=== PATIENT | female | born 1990 | race Caucasian/White ===

== ENCOUNTER 2019-09-28 07:08 | Outpatient (CLI) | payer OTHER ==
[2019-09-28 12:30] LABS: BASOPHILS % (AUTO) 0.5 %; EOSINOPHILS # (AUTO) 0.1 10^3/uL (0.0-0.7); EOSINOPHILS % (AUTO) 1.5 %; HGB - HEMOGLOBIN 14.5 g/dL (12.0-16.0); LYMPHOCYTES # (AUTO) 0.9 10^3/uL (1.5-3.5); LYMPHOCYTES % (AUTO) 21.4 %; MEAN CORPUSCULAR HEMOGLOBIN 29.7 pg (27.0-31.0); MEAN CORPUSCULAR HGB CONC 31.7 g/dL (32.0-36.0); MEAN CORPUSCULAR VOLUME 93.9 fL (81.0-99.0); MEAN PLATELET VOLUME 10.5 fL (7.9-10.8); MONOCYTES # (AUTO) 0.3 10^3/uL (0.0-1.0); MONOCYTES % (AUTO) 7.9 %; NEUTROPHILS # (AUTO) 2.8 10^3/uL (1.5-6.6); NEUTROPHILS % (AUTO) 68.5 %; PLT - PLATELET COUNT 253 10^3/uL (130-450); RED BLOOD COUNT 4.88 10^6/uL (4.20-5.40); RED CELL DISTRIBUTION WIDTH 12.2 % (12.0-15.0); WHITE BLOOD COUNT 4.1 x10^3/uL (4.8-10.8)
[2019-09-28 13:23] LABS: ALBUMIN 4.4 g/dL (3.2-5.5); ALBUMIN/GLOBULIN RATIO 1.5 (1.0-2.2); ALKALINE PHOSPHATASE 44 IU/L (42-121); ALT ALANINE AMINOTRANSFERASE 18 IU/L (10-60); AST ASPARTATE AMINOTRANSFERASE 18 IU/L (10-42); BILIRUBIN,TOTAL 0.7 mg/dL (0.2-1.0); BUN - BLOOD UREA NITROGEN 9 mg/dL (6-20); CALCIUM 9.1 mg/dL (8.5-10.3); CARBON DIOXIDE - CO2 26 mmol/L (21-32); CHLORIDE 105 mmol/L (101-111); CHOL/HDL RATIO 2.2 (<4.4); CHOLESTEROL 147 mg/dL; CREATININE 0.8 mg/dL (0.4-1.0); GFR - MDRD 86 (>89); GLUCOSE 93 mg/dL (70-100); HDL CHOLESTEROL 66 mg/dL; SODIUM 138 mmol/L (135-145); TOTAL PROTEIN 7.4 g/dL (6.7-8.2)
[2019-09-28 13:27] LABS: HB2 TOTAL 14.7 g/dL; HEMOGLOBIN A1C 0.55 g/dL; HEMOGLOBIN A1C % 5.6 % (4.6-6.2)
== END 2019-09-28 23:59 | disposition home or self-care (01) ==
LOC: LAB.N 07:08
PROVIDERS: ATTEND Family Medicine
DX: Z00.00 Encounter for general adult medical examination without abnormal findings (principal)
CPT/HCPCS: 36415; 80053; 80061; 83036; 83721; 84443; 85025

== ENCOUNTER 2019-10-31 15:28 | Outpatient (CLI) | payer OTHER ==
--- NOTE | 2019-11-02 11:04 | Ultrasound Report ---
Reason: POSITIVE TEST Procedure Date: 10/31/2019 Accession Number: [id number] / [id number] Procedure: US - OB First Trimester CPT Code: Final Report FULL RESULT: EXAM: FIRST TRIMESTER OBSTETRIC ULTRASOUND (Less than 11 weeks) EXAM DATE: 10/31/2019 04:30 PM. CLINICAL HISTORY: POSITIVE TEST. LMP: 09/01/2019. COMPARISONS: None. TECHNIQUE: Transabdominal and transvaginal ultrasound examination with static image documentation. CLINICAL DATES: EGA 8 weeks 4 days with LUCINDA 06/07/2020 based on LMP. ASSESSMENT: Gestational Sac: Single intrauterine. Mean gestational sac diameter: 39 mm = 9 weeks 2 days. Embryo: CRL (crown-rump length) 21 mm = 8 weeks 5 days. Cardiac activity: 175 beats per minute. Yolk sac: 5 mm. Amniotic fluid: Not accurately assessed at this gestational age. Early placenta: Not visible at this gestational age. Other: There is a small perigestational fluid collection measuring 17 x 7 mm. MATERNAL STRUCTURES: Uterus: Anteverted. Unremarkable. Cervix: Closed. Right Ovary/Adnexa: The ovary measures 1.9 x 1.3 x 2.3 cm, volume 2.8 cc. Unremarkable. Left Ovary/Adnexa: The ovary measures 2.5 x 1.5 x 3.3 cm, volume 6.6 cc. There is a corpus luteum measuring 1.6 x 0.9 x 1.2 cm. Free Fluid: None. Other: None. IMPRESSION: 1. Single viable intrauterine at EGA 8 weeks 5 days with LUCINDA 06/06/2020 based on crown-rump length, which is concordant with clinical dates. 2. Assigned dating is LUCINDA 06/07/2020 based on LMP. 3. There is a small perigestational fluid collection measuring 17 x 7 mm. RADIA
== END 2019-10-31 15:29 | disposition home or self-care (01) ==
LOC: DI 15:28
PROVIDERS: ATTEND Nurse Practitioner Obstetrics & Gynecology
DX: Z32.01 Encounter for pregnancy test, result positive (principal)
CPT/HCPCS: 76801; 76817

== ENCOUNTER 2019-11-09 08:00 | Outpatient (CLI) | payer OTHER ==
[2019-11-10 14:33] LABS: MUDS CUTOFF CONCENTRATIONS CUTOFF CONC BELOW:
[2019-11-10 14:38] LABS: BILIRUBIN,URINE NEGATIVE (NEGATIVE); GLUCOSE, URINE (UA) NEGATIVE (NEGATIVE); KETONES,URINE (UA) NEGATIVE (NEGATIVE); LEUKOCYTE ESTERASE, URINE NEGATIVE (NEGATIVE); NITRITE,URINE NEGATIVE (NEGATIVE); OCCULT BLOOD,URINE NEGATIVE (NEGATIVE); PROTEIN,URINE NEGATIVE (NEGATIVE); UROBILINOGEN,URINE 0.2 (NORMAL) E.U./dL (NORMAL)
[2019-11-10 14:40] LABS: CLARITY,URINE CLEAR (CLEAR)
[2019-11-10 14:48] LABS: BACTERIA,URINE Rare /HPF (None Seen); RBC,URINE 0-5 /HPF (0-5); SQUAMOUS EPITHELIAL CELL,UR RARE Squamous (<= Few)
[2019-11-10 14:49] LABS: AMPHETAMINE SCREEN,URINE NEGATIVE (NEGATIVE); COCAINE SCREEN URINE NEGATIVE (NEGATIVE); METHAMPHETAMINES SCREEN, URINE NEGATIVE (NEGATIVE); OPIATE SCREEN, URINE NEGATIVE (NEGATIVE)
[2019-11-10 14:50] LABS: BENZODIAZEPINES SCREEN, URINE NEGATIVE (NEGATIVE); METHADONE SCREEN, URINE NEGATIVE (NEGATIVE); OXYCODONE SCREEN, URINE NEGATIVE (NEGATIVE); PROPOXYPHENE SCREEN, URINE NEGATIVE (NEGATIVE); TRICYCLIC ANTIDEPRESSANT,URINE NEGATIVE (NEGATIVE)
== END 2019-11-09 23:59 | disposition home or self-care (01) ==
LOC: LAB.R 08:00
PROVIDERS: ATTEND Obstetrics & Gynecology
DX: Z36.89 Encounter for other specified antenatal screening (principal)
CPT/HCPCS: 80306; 81001; 87086

== ENCOUNTER 2019-12-28 08:00 | Outpatient (CLI) | payer OTHER ==
[2019-12-28 17:50] LABS: BASOPHILS % (AUTO) 0.4 %; EOSINOPHILS % (AUTO) 0.4 %; HGB - HEMOGLOBIN 13.3 g/dL (12.0-16.0); LYMPHOCYTES % (AUTO) 12.4 %; MEAN CORPUSCULAR HEMOGLOBIN 30.9 pg (27.0-31.0); MEAN CORPUSCULAR HGB CONC 32.2 g/dL (32.0-36.0); MEAN PLATELET VOLUME 10.6 fL (7.9-10.8); MONOCYTES # (AUTO) 0.4 10^3/uL (0.0-1.0); MONOCYTES % (AUTO) 4.8 %; NEUTROPHILS # (AUTO) 6.2 10^3/uL (1.5-6.6); NEUTROPHILS % (AUTO) 81.2 %; PLT - PLATELET COUNT 212 10^3/uL (130-450); WHITE BLOOD COUNT 7.7 x10^3/uL (4.8-10.8)
[2019-12-29 08:40] LABS: HEPATITIS B SURFACE ANTIGEN NON-REACTIVE (NON-REACTIVE)
[2019-12-29 10:24] LABS: HEPATITIS C ANTIBODY NON-REACTIVE (NON-REACTIVE)
[2019-12-29 10:40] LABS: HIV AG/AB 4TH GEN NON-REACTIVE (NON-REACTIVE)
== END 2019-12-28 23:59 | disposition home or self-care (01) ==
LOC: LAB.WCP 08:00
PROVIDERS: ATTEND Obstetrics & Gynecology
DX: Z34.80 Encounter for supervision of other normal pregnancy, unspecified trimester (principal); Z36.89 Encounter for other specified antenatal screening
CPT/HCPCS: 36415; 81599; 82950; 85025; 86592; 86762; 86803; 86850; 86900; 86901; 87340; 87389; 87522

== ENCOUNTER 2020-02-03 08:44 | Outpatient (CLI) | payer OTHER ==
--- NOTE | 2020-02-03 15:59 | Ultrasound Report ---
Reason: SCREENING Procedure Date: 02/03/2020 Accession Number: [id number] / [id number] Procedure: US - OB Detailed Eval CPT Code: Final Report FULL RESULT: EXAM: COMPLETE OBSTETRICAL ULTRASOUND EXAM DATE: 02/03/2020 10:20 AM. CLINICAL HISTORY: anatomic survey. COMPARISON: OB FIRST TRIMESTER 10/31/2019 4:00 PM. TECHNIQUE: Real-time sonographic evaluation of the fetus performed by the stereo plotter operator. Multiple advertising account representative static images were saved for review. DATING: Established EGA 22 weeks 2 days with LUCINDA 06/06/2020 based on stated dates and first ultrasound of 10/31/2019. EGA 22 weeks 1 day with LUCINDA 06/07/2020 based on LMP. EGA 22 weeks 4 days with LUCINDA 06/04/2020 based on the current ultrasound. GENERAL EVALUATION Castañeda . Cardiac activity: 158 bpm. movement: Visualized. Presentation: Cephalic. Placenta: Posterior position. No evidence for previa. Umbilical cord: 3 vessel cord. Central placental cord origin. Amniotic fluid: DAV 20.0 cm. MVP 5.5 cm. BIOMETRY Bi-Parietal Diameter (BPD): 5.5 cm, 22 weeks 5 days Head Circumference (HC): 20.4 cm, 22 weeks 4 days Abdominal Circumference (AC): 17.8 cm, 22 weeks 5 days Femur Length (FL): 4.0 cm, 22 weeks 6 days Estimated Weight: 529 g, 67 percentile for 22 weeks 2 days. ANATOMY The intracranial structures, profile, face/nose/lips, spine, 4 chamber heart and outflow tracts, stomach, abdominal wall and cord insertion, diaphragm, kidneys, bladder, and extremities were visualized and demonstrate no abnormality. MATERNAL STRUCTURES Uterus: Unremarkable. Cervix: Long and closed. Transabdominal length 3.5 cm. Right ovary/adnexa: Unremarkable. Left ovary/adnexa: Unremarkable. Free fluid: None. IMPRESSION: 1. Castañeda live intrauterine with gestational age 22 weeks 2 days based on established dates. 2. Estimated weight is within expected limits for assigned dating. 3. Normal anatomic survey. No anatomic abnormalities are detected at this time. RADIA
== END 2020-02-03 08:45 | disposition home or self-care (01) ==
LOC: DI 08:44
PROVIDERS: ATTEND Obstetrics & Gynecology
DX: Z36.89 Encounter for other specified antenatal screening (principal)
CPT/HCPCS: 76811

== ENCOUNTER 2020-02-15 08:14 | Outpatient (CLI) | payer OTHER | END 2020-02-15 08:15 | disposition home or self-care (01) | LOC: RT 08:14 | PROVIDERS: ATTEND Obstetrics & Gynecology | DX: O99.419 Diseases of the circulatory system complicating pregnancy, unspecified trimester (principal); I49.9 Cardiac arrhythmia, unspecified; Z3A.00 Weeks of gestation of pregnancy not specified; O26.899 Other specified pregnancy related conditions, unspecified trimester; R55 Syncope and collapse; R07.9 Chest pain, unspecified | CPT/HCPCS: 93005 ==

== ENCOUNTER 2020-04-26 07:00 | Outpatient (CLI) | payer OTHER ==
[2020-04-26 18:22] LABS: TOTAL PROTEIN,URINE TIMED < 6 mg/dL; TOTAL VOLUME 24HRS,URINE 2900 mL
== END 2020-04-26 23:59 | disposition home or self-care (01) ==
LOC: LAB.R 07:00
PROVIDERS: ATTEND Obstetrics & Gynecology
DX: Z34.80 Encounter for supervision of other normal pregnancy, unspecified trimester (principal)
CPT/HCPCS: 84156

== ENCOUNTER 2020-05-02 07:00 | Outpatient (CLI) | payer OTHER | END 2020-05-02 23:59 | disposition home or self-care (01) | LOC: LAB.R 07:00 | PROVIDERS: ATTEND Obstetrics & Gynecology | DX: Z34.83 Encounter for supervision of other normal pregnancy, third trimester (principal) | CPT/HCPCS: 87797 ==

== ENCOUNTER 2020-05-09 07:00 | Outpatient (CLI) | payer OTHER ==
[2020-05-09 20:37] LABS: TRICHOMONAS VAGINALIS DNA NEGATIVE (NEGATIVE)
== END 2020-05-09 23:59 | disposition home or self-care (01) ==
LOC: LAB.R 07:00
PROVIDERS: ATTEND Obstetrics & Gynecology
DX: Z11.3 Encounter for screening for infections with a predominantly sexual mode of transmission (principal)
CPT/HCPCS: 87491; 87591; 87661

== ENCOUNTER 2020-05-30 08:18 | Inpatient (IN) | payer OTHER, MEDICAID ==
[~2020-05-30 08:18] MED LIST: LIDOCAINE 1%-EPI 1:100000 20 ML MDV ONE
--- NOTE | 2020-05-30 08:46 | ANESTHESIA ---
Pre-Anesthesia VS, & Labs - Diagnosis Term IUP, previous C/s - Procedure Repeat C/S Vital Signs: Temp Pulse Resp BP Pulse Ox 37.0 C 05/30/20 08:13 Height: 5 ft 6 in Weight (kg): 88.451 kg Body Mass Index: 31.4 BMI Classification: Obese - NPO >8 hours - Is Patient ?: Yes Home Medications and Allergies Zoloft, PNV Allergies/Adverse Reactions: Allergies Allergy/AdvReac Type Severity Reaction Status Date / Time No Known Drug Allergies Allergy Verified 05/30/20 08:45 Anes History & Medical History - Anesthetic History Anesthesia Complications: reports: No previous complications Family history of Anesthesia Complications: Denies Family history of Malignant Hyperthermia: Denies - Medical History Cardiovascular: reports: Other (palpitations) Pulmonary: reports: None Gastrointestinal: reports: GERD (during ) Urinary: reports: None Neuro: reports: None Musculoskeletal: reports: None Endocrine/Autoimmune: reports: None Blood Disorders: reports: None Skin: reports: None Smoking Status: Never smoker Psychosocial: reports: Depression, Anxiety History of Cancer?: No Other Past Medical History: - Surgical History Gynecologic: section, Breast implants - Obstetrical History : 2 Parity: 1 Events: positive: None Complications: positive: None Results - EKG Results EKG Comparison: Reviewed EKG (sinus arrhythmia) Exam General: Alert, Oriented x3, Cooperative, No acute distress Dental: WNL Mouth Openin Fingerbreadth Neck Mobility: Normal Mallampati classification: II Thyromental Distance: greater than 6 cm Respiratory: Lungs clear, Normal breath sounds, No respiratory distress, No accessory muscle use Cardiovascular: Regular rate, Normal S1, Normal S2, No murmurs Mental/Cognitive Status: Alert/Oriented X3, Normal for patient Plan Anesthesia Type: Spinal Consent for Procedure(s) Verified and Reviewed: Yes Code Status: Attempt Resuscitation ASA classification: 2-Mild systemic disease Is this case an emergency?: No
[2020-05-30] MEDS ORDERED: LACTATED RINGERS 1,000 ML IV ONE ×2 (08:48→11:37)
[2020-05-30] MEDS ORDERED: ONDANSETRON 4 MG/2 ML VIAL IVP PRN ×2 (08:49→11:48)
[2020-05-30] MEDS ORDERED: METHYLERGONOVINE 0.2 MG/ML VIAL IM PRN (08:49)
[2020-05-30] MEDS ORDERED: METOCLOPRAMIDE 10 MG/2 ML VIAL IVP PRN (08:49)
[2020-05-30] MEDS ORDERED: TRANEXAMIC ACID 1,000 MG in SODIUM CHLORIDE 0.9% 100ML 100 ML IV PRN (08:49)
[2020-05-30] MEDS ORDERED: OXYTOCIN/SODIUM CHLORIDE 500 ML IV PRN (08:49)
[2020-05-30] MEDS ORDERED: SODIUM CHLORIDE FLUSH 0.9% 10 ML SYRINGE IVP PRN ×2 (08:49→12:08)
[2020-05-30] MEDS ORDERED: LIDOCAINE-MPF 1% 30 ML VIAL ID PRN (08:49)
[2020-05-30] MEDS ORDERED: miSOPROStoL 200 MCG TABLET BC PRN (08:49)
[2020-05-30] MEDS ORDERED: CARBOPROST TROMETHAMINE 250 MCG/ML AMP IM PRN (08:49)
[2020-05-30] MEDS ORDERED: OXYTOCIN 10 UNIT/ML VIAL IM PRN (08:49)
[2020-05-30] MEDS ORDERED: CITRIC ACID/SODIUM CITRATE 15 ML UDC PO ONE (08:50)
--- NOTE | 2020-05-30 08:54 | HISTORY & PHYSICAL EXAMINATION ---
Admit History - Visit Reason Visit Reason: Other (Scheduled ) - : 2 Parity: 1 Care: positive: [facility] Risk/History: positive: induced HTN Smoking Status: Never smoker - Mother's Labs Mother's Blood Type: positive: O Mother's RH: positive: Positive GBS: positive: Group B Step Negative Rubella Status: positive: Equivocal - Other Maternal History Other Maternal History: Patient is a 30-year-old G2, P1 at 39+0 weeks estimated gestational age here for scheduled repeat . No complaints. Endorses movement. No loss of fluid/vaginal bleeding/contractions. Does not want a tubal ligation. consents signed at prior visit No concerns at present CS in one week HX of GHTN: on ASA LUCINDA 06/07/2020 by LMP and 8 weeks US Completed Cards consult, normal echo and no concerns O pos/ Rub EQUIVOCAL Declined genetic screening and carrier screening. FAS: normal, S+D, posterior placenta Influenza: TBA TDAP complete Early glucola per pt request; 100 Glucola 102 Reported that she no longer wants a BTL HSV:started ppx at 36 weeks GBS neg GCCT neg Breast pump RX: given CS at 39 wga Past Medical History: Anxiety Depression Past Surgical History: (2013) Breast Augmentation 2014 SOC HX: Lives in [place] with and son, Milton Works for [employer] insurance T: None E: 1-2 drinks per week prior to D: THC none at present Safe at home Meds/Allgy - Allergies Allergies/Adverse Reactions: Allergies Allergy/AdvReac Type Severity Reaction Status Date / Time No Known Drug Allergies Allergy Verified 05/30/20 08:45 Review of Systems - Other Findings Other Findings: As per HPI, otherwise remaining systems are negative. Physical - Abdominal Exam Vital Signs: Temp Pulse Resp BP Pulse Ox 98.6 F 05/30/20 08:13 Contraction Frequency (min/apart): none - Monitoring Heart Rate Baseline: 140 mod binh 15x15 accels no decels Strip Review: positive: Category I - Presentation Presentation: positive: Vertex - Vaginal Exam Membranes: positive: Membranes intact Dilation (in cm): NA - Other Notes Labor Progress Note/Additional Text: GEN: NAD HEAD: NCAT EYES: No scleral icterus or conjunctival injection CV: RR RESP: normal effort ABD: S&NT/ND PSYCH: appropriate affect NEURO: alert and oriented, normal gait and coordination EXT: WWP Plan for Labor - Plan For Labor Plan for Labor: 30 yo at 39+0 wga here for scheduled repeat LTCS FWB: Cat I tracing, vertex, GBS neg Proceed with CS -Ancef 2g IV OCTOR -Bicitra prior to procedure. -IV acetaminopehn prior to procedure Consents obtained. Reviewed risks/benefits/alternatives to on 05/09/2020 and written informed consent was obtained. Risks include, but are not limited to, bleeding, infection, damage to neatby tissue and organs. On average, EBL of up to 1 liter is considered within normal limits for CS. Risks of blood transfusion include infection Risk of HIV 1/2million nationwide Risk of Hepatitis 1/1 million Risks of transfusion reaction Infection risk moderate given clean/contaminated nature of procedure and IV antibiotics will be given. Damage to nearby tissue and organs including bladder, bowel, ureters, blood vessels, nerves, and fetus Damage may be noted intra-op and may be delayed until after the procedure is complete Reviewed management of complications and efforts to avoid such outcomes but reviewed that they may occur despite our best efforts
[2020-05-30] MEDS: LACTATED RINGERS 1,000 ML IV SCH (09:00)
[2020-05-30] MEDS ORDERED: ceFAZolin 2 GM in SODIUM CHLORIDE 0.9% 100ML 100 ML IV ONE (09:00)
[2020-05-30] MEDS: SODIUM CHLORIDE FLUSH 0.9% 10 ML SYRINGE IVP SCH ×2 (09:00→17:52)
[2020-05-30 09:06] LABS: BASOPHILS % (AUTO) 0.2 %; EOSINOPHILS % (AUTO) 0.5 %; HGB - HEMOGLOBIN 12.4 g/dL (12.0-16.0); LYMPHOCYTES # (AUTO) 0.8 10^3/uL (1.5-3.5); LYMPHOCYTES % (AUTO) 14.7 %; MEAN CORPUSCULAR HEMOGLOBIN 30.2 pg (27.0-31.0); MEAN CORPUSCULAR HGB CONC 32.4 g/dL (32.0-36.0); MEAN CORPUSCULAR VOLUME 93.2 fL (81.0-99.0); MONOCYTES # (AUTO) 0.4 10^3/uL (0.0-1.0); NEUTROPHILS # (AUTO) 4.3 10^3/uL (1.5-6.6); NEUTROPHILS % (AUTO) 76.9 %; PLT - PLATELET COUNT 144 10^3/uL (130-450); RED BLOOD COUNT 4.11 10^6/uL (4.20-5.40); RED CELL DISTRIBUTION WIDTH 13.8 % (12.0-15.0); WHITE BLOOD COUNT 5.6 x10^3/uL (4.8-10.8)
[2020-05-30] MEDS ORDERED: GLYCOPYRROLATE 1 MG/5 ML VIAL IVP ONE (09:29)
[2020-05-30] MEDS ORDERED: MORPHINE PF 5 MG/10 ML VIAL EP ONE (09:29)
[2020-05-30] MEDS ORDERED: fentaNYL 100 MCG/2 ML VIAL EP ONE (09:29)
[2020-05-30] MEDS ORDERED: LIDOCAINE 1%-EPI 1:100000 20 ML MDV SUBQ ONE (10:12)
[2020-05-30] MEDS ORDERED: KETOROLAC 15 MG/ML VIAL IVP ONE (11:48)
[2020-05-30] MEDS ORDERED: HYDROmorphone 0.5 MG/0.5 ML SYRINGE IVP PRN (11:48)
[2020-05-30] MEDS ORDERED: MORPHINE 2 MG/ML CARPUJECT IVP PRN (11:48)
[2020-05-30] MEDS ORDERED: fentaNYL 100 MCG/2 ML VIAL IVP PRN (11:48)
[2020-05-30] MEDS ORDERED: ATROPINE ABBOJECT 1 MG/10 ML SYRINGE IVP PRN (11:48)
[2020-05-30] MEDS ORDERED: NALOXONE 0.4 MG/ML VIAL IVP PRN (11:48)
[2020-05-30] MEDS ORDERED: LACTATED RINGERS 1,000 ML IV SCH (12:00)
[2020-05-30] MEDS ORDERED: MEASLES,MUMPS & RUBELLA VACC 0.5 ML VIAL SUBQ ONE (12:08)
[2020-05-30] MEDS ORDERED: diphenhydrAMINE 25 MG CAPSULE PO PRN (12:08)
--- NOTE | 2020-05-30 12:13 | OPERATIVE REPORT ---
Operative Report - General Admit Date: 05/30/20 Procedure Date: 05/30/20 Planned Procedure: Repeat low transverse Pre-Op Diagnosis: IUP at 39+0, repeat low transverse Procedure Performed: Repeat low transverse Post Op Diagnosis: same and delivery of term gestation - Procedure Note Primary Surgeon: Sarah Manley MD Secondary Surgeon: Jeremie Cuenca MD Anesthesia Provider: Mercedez Zimmerman CRNA Anesthesia Technique: Spinal Pathology: Placenta for routine discard IV Fluids (mL): 1,000 Estimated Blood Loss (mL): 600 Urine Output (mL): 100 Indications: Patient is a 30-year-old at 39+0 weeks estimated gestational age with history of prior here for scheduled repeat low transverse . Findings: Male in vertex presentation with weight and Apgars pending. Thick post surgical scarring otherwise normal-appearing uterus,tubes, and ovaries. Complications: None - Other Other Information/Narrative: Risks benefits and alternatives of the procedure were discussed. Written informed consent was obtained. Patient was taken to the operating room where spinal anesthesia was placed and found to be adequate. She was prepped and draped in the usual sterile fashion in the dorsal supine position with a leftwar d tilt. De Jesus catheter was in place. SCDs were in place and activated. Cefazolin 2 g IV was given as a preoperative antibiotic. Preoperative timeout was performed. A Pfannenstiel incision was made in the skin with a scalpel and carried through the underlying layer of fascia in a combination of sharp and blunt dissection. The fascia was incised in the midline, and the incision was extended laterally with the Jason scissors. The superior aspect of the fascial incision was grasped with the Dwayne clamps, elevated, and the underlying rectus muscles were dissected off bluntly and sharply using the Jason scissors. Attention was then turned to the inferior aspect of the incision which in a similar fashion was grasped, tented up with Dwayne clamps, and the underlying rectus muscles dissected off bluntly and sharply using Jason scissors. The rectus muscles were then in the midline. The peritoneum was identified, tented up, and entered bluntly. The peritoneal incision was exte nded superiorly and inferiorly with good visualization of the bladder. The bladder that blade was then inserted. A bladder flap was not created. The lower uterine segment of the uterus was identified, and incised in a transverse fashion with a scalpel. The uterus was entered bluntly. The uterine incision was extended in a craniocaudal fashion by manual stretch. The bladder blade was removed. The infant was delivered from from vertex position. Baby was wrapped in a warm sterile towel. Delayed cord clamping was performed. After cessation of pulsations, the cord was clamped x2 and cut. The infant was handed off to the waiting pediatricians. The placenta was removed with manual expression. The uterus was exteriorized and cleared of all clots clots and debris via manual swipe using Ray-Isaac x2. The uterine incision was then repaired in a running locked fashion using 0 Vicryl suture. The incision was reinforced with a running imbricating layer again using 0-Vicryl suture. Excellent hemostasis was obtained. The uterus was returned to the abdomen. The gutters were cleared of all clots and debris. The pelvis was irrigated with warm normal saline. The uterine defect was well visualized in normal anatomic position it was noted again to be hemostatic. The peritoneum was then reapproximated with 2-0 Vicryl in a running fashion. The rectus muscles were then reapproximated using interrupted [id number] sutures using 2-0 Chromic. Good hemostasis was noted. The fascia was examined and a defect was noted and then closed using 0 Vicryl in a running fashion. The fascial incision wast then closed with 0-Vicryl in a running fashion starting from the left lateral edge to the midline. A second suture was used to close the fascia in a running fashion starting from the right lateral edge and meeting in the midline, agian using 0-Vicryl. The subcutaneous tissue was then irrigated and closed using 2-0 chromic in a running subcutaneous suture. Skin was closed in a running subcuticular suture using 4-0 Monocryl. A total of 20 cc of 1% lidocaine with epinephrine was injected into the suture line of the incision. Steri-Strips were applied to reinforce the incision and dressing was applied. Procedure was well-tolerated and without complication. Sponge lap and needle counts were correct x2. Patient was taken to recovery room in stable condition.
[2020-05-30] MEDS: oxyCODONE 5 MG TABLET PO PRN ×3 (12:57→21:56)
--- NOTE | 2020-05-30 13:24 | ANESTHESIA POST OP EVALUATION ---
Anesthesia Post Eval - Post Anesthesia Eval Vitals: Last Vital Signs Temp 36.5 C 05/30/20 12:37 Pulse 53 L 05/30/20 13:00 Resp 16 05/30/20 13:00 BP 102/53 L 05/30/20 13:00 Pulse Ox 100 05/30/20 13:00 CV Function Including HR & BP: positive: Stable Pain Control: positive: Satisfactory Nausea & Vomiting: positive: Negative Mental Status: positive: Patient Participates Respiratory Status: Airway Patent Hydration Status: Satisfactory Anesthesia Complications: positive: None
[2020-05-30] MEDS ORDERED: ceFAZolin 2 GM in SODIUM CHLORIDE 0.9% 100ML 100 ML IV SCH (17:33)
[2020-05-30] MEDS: ACETAMINOPHEN 500 MG TABLET PO SCH (17:51)
[2020-05-30] MEDS: KETOROLAC 30 MG/ML VIAL IVP SCH (17:51)
[2020-05-30] MEDS: SIMETHICONE CHEW 80 MG TABLET PO PRN (17:52)
[2020-05-30] MEDS: DOCUSATE SODIUM 100 MG CAPSULE PO SCH (21:01)
[2020-05-31] MEDS: KETOROLAC 30 MG/ML VIAL IVP SCH ×3 (00:01→07:35)
[2020-05-31] MEDS: SODIUM CHLORIDE FLUSH 0.9% 10 ML SYRINGE IVP SCH ×3 (00:02→07:38)
[2020-05-31] MEDS: ACETAMINOPHEN 500 MG TABLET PO SCH ×3 (01:57→19:22)
[2020-05-31] MEDS: oxyCODONE 5 MG TABLET PO PRN ×5 (01:58→20:38)
[2020-05-31 05:57] LABS: BASOPHILS % (AUTO) 0.1 %; EOSINOPHILS % (AUTO) 0.4 %; HGB - HEMOGLOBIN 10.7 g/dL (12.0-16.0); LYMPHOCYTES # (AUTO) 0.9 10^3/uL (1.5-3.5); LYMPHOCYTES % (AUTO) 9.9 %; MEAN CORPUSCULAR HEMOGLOBIN 30.4 pg (27.0-31.0); MEAN CORPUSCULAR HGB CONC 31.8 g/dL (32.0-36.0); MEAN CORPUSCULAR VOLUME 95.5 fL (81.0-99.0); MEAN PLATELET VOLUME 11.1 fL (7.9-10.8); MONOCYTES # (AUTO) 0.6 10^3/uL (0.0-1.0); MONOCYTES % (AUTO) 6.7 %; NEUTROPHILS # (AUTO) 7.3 10^3/uL (1.5-6.6); NEUTROPHILS % (AUTO) 82.2 %; PLT - PLATELET COUNT 123 10^3/uL (130-450); RED BLOOD COUNT 3.52 10^6/uL (4.20-5.40); WHITE BLOOD COUNT 8.9 x10^3/uL (4.8-10.8)
[2020-05-31] MEDS: LACTATED RINGERS 1,000 ML IV SCH ×5 (07:37→07:40)
[2020-05-31] MEDS: SERTRALINE 50 MG TABLET PO SCH (08:55)
[2020-05-31] MEDS: SIMETHICONE CHEW 80 MG TABLET PO PRN (08:55)
[2020-05-31] MEDS: DOCUSATE SODIUM 100 MG CAPSULE PO SCH ×2 (08:55→21:42)
[2020-05-31] MEDS: IBUPROFEN 600 MG TABLET PO SCH ×2 (13:07→19:22)
--- NOTE | 2020-05-31 15:24 | PROVIDER PROGRESS NOTE ---
Subjective - Prog Note Date Prog Note Date: 05/31/20 Prog Note Time: 15:22 - Subjective Subjective: Patient is doing quite well. Up and ambulating, tolerating po, pain well managed. BF going well. Objective - Vital Signs/Intake & Output Vital Signs: Vital Signs x48h Temp Pulse Resp BP Pulse Ox 05/31/20 11:55 98.2 F 57 L 16 119/61 100 05/31/20 08:02 97.9 F 56 L 16 117/66 98 Intake & Output: Intake & Output 05/28/20 05/29/20 05/30/20 05/31/20 23:59 23:59 23:59 23:59 Intake Total 1100 500 Output Total 1215 2000 Balance -115 -1500 - Objective General Appearance: positive: No acute distress Respiratory: positive: Chest non-tender, No respiratory distress Cardiovascular: positive: Regular rate & rhythm Abdomen: positive: Non-tender, Other (S&NT/ND. [place] CDI) Back: positive: Nml inspection Skin: positive: Color nml Extremities: positive: Non-tender Neurologic/Psychiatric: positive: Oriented x3 - Lab Results Fish Bones: 05/31/20 05:32 Other Labs: Lab Results x24hrs 05/31/20 Range/Units 05:32 WBC 8.9 (4.8-10.8) x10^3/uL RBC 3.52 L (4.20-5.40) 10^6/uL Hgb 10.7 L (12.0-16.0) g/dL Hct 33.6 L (37.0-47.0) % MCV 95.5 (81.0-99.0) fL MCH 30.4 (27.0-31.0) pg MCHC 31.8 L (32.0-36.0) g/dL RDW 14.0 (12.0-15.0) % Plt Count 123 L (130-450) 10^3/uL MPV 11.1 H (7.9-10.8) fL Neut # (Auto) 7.3 H (1.5-6.6) 10^3/uL Lymph # (Auto) 0.9 L (1.5-3.5) 10^3/uL [place] # (Auto) 0.6 (0.0-1.0) 10^3/uL Eos # (Auto) 0.0 (0.0-0.7) 10^3/uL Baso # (Auto) 0.0 (0.0-0.1) 10^3/uL Absolute Nucleated RBC 0.00 x10^3/uL Nucleated RBC % 0.0 /100WBC Assessment/Plan - Problem List (1) deliv NOS-unsp Impression: POD#1: Routine post op care Reviewed COVD exposure given OR stafff members was positive but overall low risk of transmission due to precautions taken in OR Anticipate DC home tomorrow.
[2020-06-01] MEDS: oxyCODONE 5 MG TABLET PO PRN ×2 (00:28→08:28)
[2020-06-01] MEDS: IBUPROFEN 600 MG TABLET PO SCH ×3 (00:29→08:27)
[2020-06-01] MEDS: ACETAMINOPHEN 500 MG TABLET PO SCH ×2 (03:27→11:22)
[2020-06-01] MEDS: DOCUSATE SODIUM 100 MG CAPSULE PO SCH (08:28)
[2020-06-01] MEDS: SERTRALINE 50 MG TABLET PO SCH (08:28)
[2020-06-01] MEDS ORDERED: FLU VACC QS2020-21(6MOS UP)/PF 60 MCG/0.5 ML SYRINGE IM ONE ×2 (10:07→11:00)
--- NOTE | 2020-06-01 10:07 | Discharge Plan ---
Discharge Plan Problem Reviewed?: Yes Disposition: Home, Self Care Condition: Good Diet: Regular Activity Restrictions: Additional Comments (Do not lift more than 10 lbs) Shower Restrictions: No No Smoking: If you smoke, Please STOP! Call for help. Follow-up with: Bridgette Manley MD [Provider Admit Priv/Credential] - 1 Week
[2020-06-01] MEDS ORDERED: bisacodyL 5 MG TABLET PO SCH (10:28)
[2020-06-01 12:01] VITALS: BP 121/69
--- NOTE | 2020-06-01 12:17 | Discharge Plan ---
Discharge Plan Problem Reviewed?: Yes Disposition: Home, Self Care Condition: Good Prescriptions: Docusate Sodium 100 - 200 mg PO BID PRN #60 capsule PRN Reason: Constipation Ibuprofen [Motrin] 600 mg PO Q6H PRN #90 tab PRN Reason: Pain oxyCODONE [Roxicodone] 5 mg PO Q4H PRN #24 tablet PRN Reason: Pain Acetaminophen [Tylenol Extra Strength] 500 - 1,000 mg PO Q8H PRN #90 tablet PRN Reason: Pain Diet: Regular Activity Restrictions: Additional Comments (Do not lift more than 10 lbs for 4 weeks) Shower Restrictions: Yes (No tub baths or hot tubs for 4 weeks) Driving Restrictions: Yes (No driving on narcotics) Additional Instructions or Follow Up instructions: Nothing in the vagina for 6 weeks: No intercourse, tampons, douching Call for: -Fever greater than 100.5 -Pain that does not improve with pain medication -Heavy bleeding in which you are soaking a pad an hour for 2 hours in a row -Incision becomes hot, hard, red, starts to open, or leaks foul smelling fluid No Smoking: If you smoke, Please STOP! Call for help. Follow-up with: Bridgette Manley MD [Provider Admit Priv/Credential] - 1 Week
--- NOTE | 2020-06-01 12:21 | PROVIDER PROGRESS NOTE ---
Subjective - Prog Note Date Prog Note Date: 06/01/20 Prog Note Time: 12:19 - Subjective Subjective: Patient is up and ambulating, tolerating po, and voiding. Pain is well managed with pain medications. BF going well. Minimal lochia Objective - Vital Signs/Intake & Output Reviewed Vital Signs: Yes Vital Signs: Vital Signs x48h Temp Pulse Pulse Resp BP Pulse Ox 06/01/20 12:00 98.1 F 69 16 121/69 100 06/01/20 08:37 98.6 F 62 16 121/73 98 06/01/20 05:00 98.4 F 59 L 20 111/69 99 Intake & Output: Intake & Output 05/29/20 05/30/20 05/31/20 06/01/20 23:59 23:59 23:59 23:59 Intake Total 1100 500 Output Total 1215 2000 Balance -115 -1500 - Objective General Appearance: positive: No acute distress Respiratory: positive: No respiratory distress Cardiovascular: positive: Regular rate & rhythm Abdomen: positive: Non-tender, Other (S&NT/ND. FF below umbi. Incision CDI with steris in pace) Skin: positive: Color nml Extremities: positive: Non-tender, No pedal edema Neurologic/Psychiatric: positive: Oriented x3 - Lab Results Fish Bones: 05/31/20 05:32 Assessment/Plan - Problem List (1) deliv NOS-unsp Impression: PoD#2: Meeting goals for discharge Influenza and MMR given prior to DC Reviewed COVID exposure, deemed minimal as intraop -Testing not recommended within [id number] hours -Should present for testing with onset of symptoms Routine DC instructions given DC to home
--- NOTE | 2020-06-01 13:05 | DISCHARGE SUMMARY ---
Discharge Summary Admit Date: 05/30/20 Discharge Date: 06/01/20 Discharging Provider: Jessica Condition at Discharge: Good Discharge Disposition: 01 Home, Self Care - DIAGNOSES Admission Diagnoses: IUP at 39+0 wga Repeat Discharge Diagnoses with Status of Each Condition: Same and delivery of term gestation - HPI History of Present Illness: Patient is a 30-year-old G2, P1 at 39+0 weeks estimated gestational age admitted for scheduled repeat . No complaints. Endorses movement. No loss of fluid/vaginal bleeding/contractions. Declined tubal ligation. - HOSPITAL COURSE Hospital Course: Patient was admitted for scheduled repeat . Procedure was well tolerated and without complication. By postoperative day #2, patient was meeting goals for discharge. Received MMR and influenza prior to DC. Discharged to home. - ALLERGIES Allergies/Adverse Reactions: Allergies Allergy/AdvReac Type Severity Reaction Status Date / Time No Known Drug Allergies Allergy Verified 05/30/20 08:45 - MEDICATIONS Home Medications: Ambulatory Orders Medication Instructions Recorded Confirmed Acetaminophen [Tylenol Extra 500 - 1,000 mg PO Q8H PRN #90 06/01/20 Strength] tablet Docusate Sodium 100 - 200 mg PO BID PRN #60 capsule 06/01/20 Ibuprofen [Motrin] 600 mg PO Q6H PRN #90 tab 06/01/20 oxyCODONE [Roxicodone] 5 mg PO Q4H PRN #24 tablet 06/01/20 - LABS Result Diagrams: 05/31/20 05:32 - FOLLOW UP Follow Up: 1 week with Mr. Manley - TIME SPENT Time Spent in Discharge (Minutes): 30
[2020-06-01] MEDS ORDERED: MEASLES,MUMPS & RUBELLA VACC 0.5 ML VIAL SUBQ ONE (14:00)
--- NOTE | 2020-06-01 14:45 | Labor Flowsheet ---
Labor Flowsheet Datetime Report Generated by CPN: 06/01/2020 14:45 Datetime: 05/30/2020 14:18 VAGINAL EXAM Membranes Ruptured Date/Time: 05/30/2020 10:10 Membranes Rupture Method: Artificial Amniotic Fluid Color: Clear Amniotic Fluid Amount: Moderate
--- NOTE | 2020-06-01 21:09 | DISCHARGE SUMMARY ---
Physician: Amanda Aldana MD DATE OF ADMISSION: 05/30/2020 DATE OF DISCHARGE: 06/01/2020 DIAGNOSES 1. Prior section. 2. Intrauterine at 39 weeks. DISCHARGE DIAGNOSES: Status post repeat section. PROCEDURE: 05/30/2020, repeat low transverse section. OPERATIONS AND PROCEDURES: On 05/30/2020, she had a repeat low transverse section, EBL was 600 mL and thick postsurgical scarring was noted. Otherwise, she had normal-appearing pelvic anatomy . HOSPITAL COURSE: The patient was admitted for her repeat section that had been scheduled. She underwent her uncomplicated surgery and her recovery was uncomplicated as well. By da y #2, she was eating, ambulating, urinating, and without difficulty. Her pain was mini mal. Her mood was good. She had not yet had a bowel movement, but was passing flatus. DISCHARGE EXAMINATION: She is afebrile with normal vital signs. Alert and smiling, in no apparent d istress. Abdomen is soft, nontender, nondistended. Fundus firm, nontender, and at the umbilicus. I ncision clean, dry, and intact and has Steri-Strips intact. There is trace lower extremity edema nigel aterally. Postoperative hematocrit was 33.6. The patient is rubella equivocal and got her MMR vaccine here. She also got her influenza vaccine an d her partner was advised to get his as well. DISCHARGE MEDICATIONS 1. vitamins. 2. Oxycodone. 3. Ibuprofen. 4. Colace. DISCHARGE CONDITION: Good. DISPOSITION: Home. FOLLOWUP: Follow up in one week with Dr. Manley. PRECAUTIONS: Routine and postoperative precautions given. TD: 06/01/2020 10:37
== END 2020-06-01 14:44 | disposition home or self-care (01) | DRG 788 ==
LOC: FBP 08:18
PROVIDERS: ADMIT Obstetrics & Gynecology; ATTEND Obstetrics & Gynecology
PROC: 10D00Z1 Extraction of Products of Conception, Low, Open Approach (ICD-10-PCS; principal; 2020-05-30 07:30)
DX: O34.211 Maternal care for low transverse scar from previous cesarean delivery (principal); O13.4 Gestational [pregnancy-induced] hypertension without significant proteinuria, complicating childbirth; O99.344 Other mental disorders complicating childbirth; F41.9 Anxiety disorder, unspecified; F32.9 Major depressive disorder, single episode, unspecified; Z3A.39 39 weeks gestation of pregnancy; Z37.0 Single live birth
CPT/HCPCS: 36415; 85025; 86850; 86900; 86901; A9270; J2274; J7120

== ENCOUNTER 2020-09-03 13:27 | Outpatient (CLI) | payer OTHER, MEDICAID | END 2020-09-03 13:28 | disposition home or self-care (01) | LOC: COV 13:27 | PROVIDERS: ATTEND Family Medicine | DX: R50.9 Fever, unspecified (principal); R05 Cough; R06.02 Shortness of breath; M79.10 Myalgia, unspecified site; Z20.828 Contact with and (suspected) exposure to other viral communicable diseases ==

== ENCOUNTER 2020-10-24 09:50 | Outpatient (CLI) | payer OTHER, MEDICAID ==
--- NOTE | 2020-10-24 14:20 | XRAY Report ---
PROCEDURE: Cervical Spine 2 View INDICATIONS: CHRONIC NECK PAIN TECHNIQUE: 3 view(s) of the cervical spine were acquired. COMPARISON: None. FINDINGS: Bones: No fractures or dislocations to the superior endplate of T3 level. The lateral masses of C1 appear intact on the odontoid view. No suspicious bony lesions. No acute compression fractures. Str aightening of cervical lordosis likely related to positioning and/or muscle spasms. Soft tissues: No prevertebral soft tissue swelling. IMPRESSION: Cervical spine without acute fracture or dislocation. Straightening of cervical lordosis likely related to patient positioning and/or concurrent muscle spa sms. Reviewed by: Yvon Gonzalez MD on 10/24/2020 2:19 PM PST Approved by: Yvon Gonzalez MD on 10/24/2020 2:19 PM PST Station ID: [id number]
== END 2020-10-24 09:51 | disposition home or self-care (01) ==
LOC: DI 09:50
PROVIDERS: ATTEND Nurse Practitioner Family
DX: M54.2 Cervicalgia (principal); G89.29 Other chronic pain

== ENCOUNTER 2021-02-04 08:00 | Outpatient (CLI) | payer OTHER, MEDICAID ==
[2021-02-04 18:15] LABS: BASOPHILS % (AUTO) 0.5 %; EOSINOPHILS % (AUTO) 0.7 %; HCT - HEMATOCRIT 44.1 % (37.0-47.0); HGB - HEMOGLOBIN 14.2 g/dL (12.0-16.0); LYMPHOCYTES % (AUTO) 22.9 %; MEAN CORPUSCULAR HEMOGLOBIN 30.3 pg (27.0-31.0); MEAN CORPUSCULAR HGB CONC 32.2 g/dL (32.0-36.0); MEAN PLATELET VOLUME 10.6 fL (7.9-10.8); MONOCYTES # (AUTO) 0.3 10^3/uL (0.0-1.0); MONOCYTES % (AUTO) 6.1 %; NEUTROPHILS # (AUTO) 2.9 10^3/uL (1.5-6.6); NEUTROPHILS % (AUTO) 69.3 %; PLT - PLATELET COUNT 264 10^3/uL (130-450); RED BLOOD COUNT 4.69 10^6/uL (4.20-5.40); RED CELL DISTRIBUTION WIDTH 12.9 % (12.0-15.0); WHITE BLOOD COUNT 4.2 x10^3/uL (4.8-10.8)
[2021-02-04 18:31] LABS: ALBUMIN 4.2 g/dL (3.2-5.5); ALBUMIN/GLOBULIN RATIO 1.2 (1.0-2.2); BILIRUBIN,TOTAL 0.5 mg/dL (0.2-1.0); CALCIUM 9.1 mg/dL (8.5-10.3); CREATININE 0.6 mg/dL (0.4-1.0); POTASSIUM 3.8 mmol/L (3.5-5.0); TOTAL PROTEIN 7.6 g/dL (6.7-8.2)
[2021-02-04 18:42] LABS: THYROID STIMULATING HORMONE 1.6 uIU/mL (0.34-5.60)
[2021-02-04 20:03] LABS: ESTIMATED AVERAGE GLUCOSE 103 mg/dL (70-100); HEMOGLOBIN A1c% 5.2 % (4.27-6.07)
== END 2021-02-04 08:01 | disposition home or self-care (01) ==
LOC: LAB.N 08:00
PROVIDERS: ATTEND Physician Assistant Medical
DX: R53.83 Other fatigue (principal)
CPT/HCPCS: 36415; 80050; 83036

== ENCOUNTER 2021-08-06 11:08 | Outpatient (CLI) | payer OTHER, MEDICAID ==
--- NOTE | 2021-08-06 16:26 | XRAY Report ---
PROCEDURE: Lumbar Spine Complete INDICATIONS: HX OF FALL,LOW BACK PAIN FOR LESS THAN 6 MO TECHNIQUE: 4 views of the lumbar spine were acquired. COMPARISON: None. FINDINGS: Bones: 5 [id number] vertebrae are present. There is trace retrolisthesis of L2 on L3, L3 on L4 . Mild to moderate disc space narrowing is present L4-5, L5-S1 with moderate foraminal narrowing at L 4-5 and L5-S1. No pars defects are identified. No vertebral body compression fractures. No suspiciou s bony lesions. Soft tissues: Overlying bowel gas pattern is normal. No suspicious soft tissue calcifications. IMPRESSION: No visualized acute fracture or dislocation. However, occult injury cannot be excluded. Recommend short interval imaging follow-up in 7-10 days as clinically indicated for additional evalua tion. Reviewed by: Gina Evans MD on 08/06/2021 4:25 PM [facility] Approved by: Gina Evans MD on 08/06/2021 4:25 PM [facility] Station ID: [id number]
== END 2021-08-06 11:09 | disposition home or self-care (01) ==
LOC: DI 11:08
PROVIDERS: ATTEND Family Medicine
DX: M54.50 Low back pain, unspecified (principal); Z91.81 History of falling

== ENCOUNTER 2021-10-08 08:00 | Outpatient (CLI) | payer OTHER, MEDICAID | END 2021-10-08 23:59 | LOC: LAB.N 08:00 | PROVIDERS: ATTEND Family Medicine | DX: R51.9 Headache, unspecified (principal); Z20.822 Contact with and (suspected) exposure to COVID-19 ==